=== PATIENT | male | born 1965 | race Caucasian/White ===

== ENCOUNTER 2016-08-15 19:52 | Emergency (ER) | payer OTHER ==
[~2016-08-15] VITALS: Ht 177.8 cm; Wt 59.9 kg
[2016-08-15 20:17] VITALS: TEMP 37.2; Ht 177.8 cm; Wt 59.9 kg
[2016-08-15] MEDS ORDERED: SODIUM CHLORIDE 0.9% 1000ML 1,000 ML IV ONE (21:15)
[2016-08-15] MEDS ORDERED: SODIUM CHLORIDE 0.9% 1000ML 1,000 ML IV STA (21:15)
--- NOTE | 2016-08-15 21:17 | EMERGENCY ROOM VISIT NOTE ---
History Report prepared by Leobardo: John Arevalo Under the Supervision of: Dr. John Tony M.D. First contact with patient: 21:03 Chief Complaint: DIZZY Stated Complaint: DIZZY, NAUSEA Nursing Triage Summary: sent from [facility] via amb for c/o dizziness earlier now resolved. continues on detox History of Present Illness The patient is a 51 year old male who presents to the Emergency Room with complaints of an episode of dizziness occurring a few hours ago. He notes he is seen at [facility] for rehab for alcohol addiction. He reports that [facility] is unable to handle cardiac incidents, and earlier today had a high blood pressure , low heart rate, and nausea, and was sent by ambulance for further evaluation.. The patient states that he since mostly stabilized. He notes he had shortness of breath at the time, but it has since resolved. He denies any trauma or injury, vomiting, chest pain, or dark or bloody stools. The patient notes he may still be dehydrated as he only recently checked himself in at [facility]. He was given Lopressor en route to the ER. He denies any overdose or attempts at hurting himself. The patient admits to taking Keppra for a history of seizure, and Valium. Source of History: patient, transfer records Onset: a few hours ago Position: other (global) Quality: other (dizziness) Timing: other (episode) Associated Symptoms: + SOB, No chest pain, No vomiting Review of Systems See HPI for pertinent positives & negatives. A total of 10 systems reviewed and were otherwise negative. Past Medical & Surgical Medical Problems: (1) History of seizure Old medical records were reviewed. Nurse's notes were reviewed and I agree with. No history of cardiac disease or pulmonary disease or blood clots. Family History No pertinent family history stated. Social History Smoking Status: Former Smoker Alcohol Use: heavy Drug Use: none Marital Status: Current/Historical Medications Scheduled Levetiracetam (Keppra), Unknown Dose PO BID Trazodone Hcl (Trazodone), 50 MG PO HS Varenicline Tartrate (Chantix Starting Month Pa), 1 MG PO DAILY Allergies Coded Allergies: No Known Allergies (Unverified , 08/15/16) Physical Exam Vital Signs Date Time Temp Pulse Resp B/P Pulse Ox O2 Delivery O2 Flow Rate FiO2 08/15/16 22:00 84 20 118/85 100 Room Air 08/15/16 21:50 84 08/15/16 21:46 80 18 114/77 99 Room Air 08/15/16 20:17 37.2 91 18 104/73 98 Room Air Physical Exam General: Non ill appearing middle aged male. Well developed well nourished in no acute distress, breathing comfortably on room air. Normal speech HEENT: Normal cephalic atraumatic. Pupils are equal round and reactive to light. Extraocular movements are intact. Oropharynx is pink with moist mucous membranes. No swelling of the mouth lips or tongue. Neck: Supple with a midline trachea. No meningeal signs or stiffness, no JVD or bruits. No Stridor. Chest: Clear to auscultation bilaterally. No wheezes or rhonchi. No increased work of breathing. Heart: regular rate and rhythm. Abdomen: Soft nontender, nondistended without rebound guarding or rigidity. Extremities: No cyanosis clubbing or edema. No calf tenderness or assymetry Spine/Back. Non tender to palpation. No CVA tenderness Skin: Good turgor without rashes. Neurologic exam: Cranial nerves two through 12 are intact. Motor and sensation are intact and symmetrical throughout. No tremors Medical Decision & Procedures ER Provider Diagnostic Interpretation: X ray results as stated below per my interpretation and radiologist interpretation. Other radiology results as stated below per my review and radiologist interpretation: CHEST ONE VIEW PORTABLE FINDINGS: Lung volumes are normal. No consolidation is identified. There is no evidence of pulmonary edema. No pneumothorax or pleural effusion is identified. Cardiac size is normal. Mediastinal contours are normal. IMPRESSION: No acute cardiopulmonary findings. Electronically signed by: Rolando Ordonez M.D. 08/15/2016 9:38 PM Dictated Date/Time: 08/15/2016 9:38 PM CTA CHEST: No pulmonary embolism detected. No focal consolidation. Scattered bibasilar atelectasis. No pleural effusion or pneumothorax. Heart size is normal. Normal pericardial effusion. Several nonobstructing bilateral renal calculi. Small calcified granulomas in the spleen. Radiologist: Thaddeus Gan MD Laboratory Results 08/15/16 21:45 Red Blood Count 3.85, Mean Corpuscular Volume 98.4, Mean Corpuscular Hemoglobin 32.5, Mean Corpuscular Hemoglobin Concent 33.0, Mean Platelet Volume 11.1, Neutrophils (%) (Auto) 48.0, Lymphocytes (%) (Auto) 30.6, Monocytes (%) (Auto) 17.1, Eosinophils (%) (Auto) 1.6, Basophils (%) (Auto) 1.1, Neutrophils # (Auto ) 2.70, Lymphocytes # (Auto) 1.72, Monocytes # (Auto) 0.96, Eosinophils # (Auto ) 0.09, Basophils # (Auto) 0.06 08/15/16 21:45 Test 08/15/16 21:45 08/15/16 21:53 White Blood Count 5.62 K/uL (4.8-10.8) Red Blood Count 3.85 M/uL (4.7-6.1) Hemoglobin 12.5 g/dL (14.0-18.0) Hematocrit 37.9 % (42-52) Mean Corpuscular Volume 98.4 fL (80-100) Mean Corpuscular Hemoglobin 32.5 pg (25-34) Mean Corpuscular Hemoglobin Concent 33.0 g/dl (32-36) Platelet Count 461 K/uL (130-400) Mean Platelet Volume 11.1 fL (7.4-10.4) Neutrophils (%) (Auto) 48.0 % Lymphocytes (%) (Auto) 30.6 % Monocytes (%) (Auto) 17.1 % Eosinophils (%) (Auto) 1.6 % Basophils (%) (Auto) 1.1 % Neutrophils # (Auto) 2.70 K/uL (1.4-6.5) Lymphocytes # (Auto) 1.72 K/uL (1.2-3.4) Monocytes # (Auto) 0.96 K/uL (0.11-0.59) Eosinophils # (Auto) 0.09 K/uL (0-0.5) Basophils # (Auto) 0.06 K/uL (0-0.2) RDW Standard Deviation 53.3 fL (36.4-46.3) RDW Coefficient of Variation 14.8 % (11.5-14.5) Immature Granulocyte % (Auto) 1.6 % Immature Granulocyte # (Auto) 0.09 K/uL (0.00-0.02) Anion Gap 8.0 mmol/L (3-11) Est Creatinine Clear Calc Drug Dose 81.3 ml/min Estimated GFR () 113.4 Estimated GFR (Non- 97.9 BUN/Creatinine Ratio 10.4 (10-20) Calcium Level 8.8 mg/dl (8.5-10.1) Total Bilirubin 0.2 mg/dl (0.2-1) Direct Bilirubin < 0.1 mg/dl (0-0.2) Aspartate Amino Transf (AST/SGOT) 17 U/L (15-37) Alanine Aminotransferase (ALT/SGPT) 25 U/L (12-78) Alkaline Phosphatase 56 U/L (45-117) Total Creatine Kinase 28 U/L (39-308) Creatine Kinase MB < 0.5 ng/ml (0.5-3.6) Creatine Kinase MB Ratio (0-3.0) Total Protein 7.3 gm/dl (6.4-8.2) Albumin 2.8 gm/dl (3.4-5.0) Lipase 587 U/L (73-393) Thyroid Stimulating Hormone (TSH) 1.360 uIu/ml (0.300-4.500) Bedside D-Dimer > 450 ng/mlFEU (0-450) Bedside Troponin I 0.000 ng/ml (0-0.045) Laboratory studies as stated above per my review. Medications Administered Medications (Trade) Dose Ordered Sig/[place] Route Start Time Stop Time Status Last Admin Dose Admin Sodium Chloride (Nss 1000ml) 1,000 ml @ 999 mls/hr Q1H1M STAT IV 08/15/16 21:15 08/15/16 22:15 DC 08/15/16 22:57 999 MLS/HR ECG Indication: other (dizzy) Rate (beats per minute): 80 Rhythm: normal sinus Findings: no acute ischemic change, other (poor R wave progression) Comparison ECG Date: no prior available ED Course 2105: Past medical records reviewed. The patient was evaluated in room C10, and a complete history and physical examination were performed. 2114: Ordered NSS 1,000 ml @ 150 mls/hr IV, and NSS 1,000 ml @ 999 mls/hr IV. 2234: D-dimer is elevated and I will get a CT. Patient is in agreement. 0001: I reassessed the patient. He is resting comfortably. No evidence of withdrawal. 0005: Upon reevaluation, the patient is doing well. I discussed the results and treatment plan with the patient. He verbalized agreement of the treatment plan. The patient was discharged home. Medical Decision Differentials include arrhythmia, dehydration, electrolyte or metabolic abnormality, PE, and toxicologic process. This patient comes in as described above. He was placed in room C10. He had an episode where shortness of breath and elevated heart rate, his blood pressure was also low. . He looks and feels better now. He is in [facility] for alcohol withdrawal .he has not drank for about a week. He didn't denies that he feels like he is in withdrawal and clinically does not appear to be in withdrawal. He's been on Valium there. He feels better and at present is asymptomatic. He has no cardiac disease, diabetes, blood clot history or pulmonary disease history. IV access established EKG was obtained as well as multiple blood testing was hydrated with IV normal saline. EKG shows no acute ischemic changes or ectopy. He has no acute electrolyte or metabolic abnormalities otherwise of significance which would explain his symptoms. His troponin is not elevated his symptoms are atypical for cardiac disease. His d- dimer was elevated in light of this, I did a chest CT. The chest x-ray prior that was negative. CT of the chest was unremarkable he's remained stable and without any withdrawal type symptoms. At this point, there is no evidence of acute cardiac event. He does feel good and would like to go back to [facility] and he will be transferred back to [facility] for further inpatient rehabilitation. Impression Primary Impression: Dizziness Additional Impression: Tachycardia Scribe Attestation The scribe's documentation has been prepared under my direction and personally reviewed by me in its entirety. I confirm that the note above accurately reflects all work, treatment, procedures, and medical decision making performed by me. Departure Information Dispostion Home / Self-Care Referrals No Doctor, Assigned (PCP) Patient Instructions My [facility] Additional Instructions Rest. Drink plenty of fluids. Return if: Chest pain, shortness breath, worsening symptoms, fever chills, any new problems or concerns Problem Qualifiers
[2016-08-15] MEDS ORDERED: VARE1PAK15 PO (21:31)
[2016-08-15] MEDS ORDERED: TRAZ50TA35 PO (21:32)
[2016-08-15] MEDS ORDERED: LEVE250T PO (21:35)
--- NOTE | 2016-08-15 21:40 | DIAGNOSTIC IMAGING REPORT ---
CHEST ONE VIEW PORTABLE CLINICAL HISTORY: Chest pain. COMPARISON STUDY: No previous studies for comparison. FINDINGS: Lung volumes are normal. No consolidation is identified. There is no evidence of pulmonary edema. No pneumothorax or pleural effusion is identified. Cardiac size is normal. Mediastinal contours are normal. IMPRESSION: No acute cardiopulmonary findings. Electronically signed by: Rolando Ordonez M.D. 08/15/2016 9:38 PM Dictated Date/Time: 08/15/2016 9:38 PM
[2016-08-15 21:54] LABS: HEMATOCRIT 37.9 % (42-52); MEAN CELL VOLUME 98.4 fL (80-100); MEAN CORPUSCULAR HEMOGLOBIN 32.5 pg (25-34); MEAN PLATELET VOLUME 11.1 fL (7.4-10.4); PLATELET COUNT 461 K/uL (130-400); RED BLOOD COUNT 3.85 M/uL (4.7-6.1); WHITE BLOOD COUNT 5.62 K/uL (4.8-10.8)
[2016-08-15 22:12] LABS: ALT/SGPT 25 U/L (12-78); BLOOD UREA NITROGEN 9 mg/dl (7-18); BUN/CREATININE RATIO 10.4 (10-20); CALCIUM 8.8 mg/dl (8.5-10.1); CARBON DIOXIDE 28 mmol/L (21-32); CHLORIDE 105 mmol/L (98-107); GLUCOSE 94 mg/dl (70-99); POTASSIUM 4.2 mmol/L (3.5-5.1); SODIUM 141 mmol/L (136-145)
[2016-08-15 22:14] LABS: BASO % 1.1 %; BASO ABS # 0.06 K/uL (0-0.2); COMPLETE YES; EOS % 1.6 %; IG% 1.6 %; LYMPH % 30.6 %; LYMPH ABS # 1.72 K/uL (1.2-3.4); MONO % 17.1 %
[2016-08-15 22:23] LABS: ALKALINE PHOSPHATASE 56 U/L (45-117); AST/SGOT 17 U/L (15-37)
[2016-08-15] MEDS ORDERED: OPTIRAY 320 IV PRN (22:45)
[2016-08-16 02:33] VITALS: BP 112/76; PULSE 78; O2SAT 100
--- NOTE | 2016-08-16 07:42 | DIAGNOSTIC IMAGING REPORT ---
CHEST CTA for PULMONARY ARTERIES CT DOSE: 204.79 mGy.cm HISTORY: Atypical chest pain. TECHNIQUE: Multiaxial CT images of the chest were performed following the intravenous administration of contrast to evaluate the pulmonary arteries. Maximal intensity projection images were also obtained. COMPARISON STUDY: None. FINDINGS: There is a normal caliber thoracic aorta with no evidence for dissection. There is no evidence for pulmonary embolus. No pleural effusions. No pneumothorax. The liver and spleen are unremarkable. No mediastinal or hilar lymphadenopathy. The central airways are patent. Bilateral nephrolithiasis. A few punctate calcified granuloma seen within the spleen. A bilobed left-sided cardiophrenic sulcus low density lesion measuring 3.0 x 1.5 cm. This favors a small pericardial cyst. Bibasilar densities favor dependent change/atelectasis. IMPRESSION: 1. No evidence for pulmonary embolus. 2. Bilateral nephrolithiasis. 3. A 3.0 x 1.5 cm low-density lesion within the left cardiophrenic sulcus. This favors a pericardial cyst. Electronically signed by: Rodolfo Garibay M.D. 08/16/2016 7:41 AM Dictated Date/Time: 08/16/2016 7:34 AM
== END 2016-08-16 02:35 | disposition home or self-care (01) ==
LOC: C.EDB 19:54 → C.EDC 08-16 02:35
DX: R42 Dizziness and giddiness (principal); R00.0 Tachycardia, unspecified; Z87.891 Personal history of nicotine dependence